=== PATIENT | male | born 1965 | race Two or more races ===

== ENCOUNTER 2022-06-25 07:54 | Emergency (ER) | payer MEDICAID ==
[~2022-06-25] VITALS: Ht 170.2 cm; Wt 100.0 kg
[2022-06-25] MEDS ORDERED: ONDANSETRON HCL 4MG/2ML INJ IV STA (08:14)
[2022-06-25] MEDS ORDERED: SODIUM CHLORIDE 0.9% 1,000 ML IV ONE (08:15)
[2022-06-25 08:55] LABS: CHLORIDE 104 mEq/L (98-107)
[2022-06-25 09:12] LABS: HEMOGLOBIN. 15.2 g/dL (14.0-18.0); MEAN CORPUSCULAR HEMOGLOBIN 29.1 pg (28.0-32.0); MEAN CORPUSCULAR VOLUME 84.4 fL (80.0-94.0); MEAN PLATELET VOLUME 9.7 fl (7.4-10.4); PLATELET 167 x1000/uL (130-400); RED BLOOD CELL COUNT 5.21 mill/uL (4.7-6.1); RED CELL DISTRIBUTION WIDTH 13.8 % (11.6-14.6)
[2022-06-25 10:09] LABS: PLATELET ESTIMATE NORMAL
[2022-06-25 11:37] LABS: CLARITY URINE CLEAR (CLEAR); COLOR URINE YELLOW (YELLOW); KETONES URINE TRACE (NEGATIVE); LEUKOCYTE ESTERASE URINE NEGATIVE (NEGATIVE); NITRITE URINE NEGATIVE (NEGATIVE); OCCULT BLOOD URINE NEGATIVE (NEGATIVE); PROTEIN URINE 1+ (NEGATIVE); SPECIFIC GRAVITY URINE 1.014 (1.005-1.030)
[2022-06-25] MEDS ORDERED: OMEP20CA14 MT (11:58)
[2022-06-25] MEDS ORDERED: ONDA4TAB11 PO (11:58)
[2022-06-25 12:15] VITALS: BP 158/98
== END 2022-06-25 12:20 | disposition home or self-care (01) ==
LOC: ER 07:54
DX: R10.13 Epigastric pain (principal); R11.2 Nausea with vomiting, unspecified; K76.0 Fatty (change of) liver, not elsewhere classified; R94.31 Abnormal electrocardiogram [ECG] [EKG]; Z20.822 Contact with and (suspected) exposure to COVID-19
CPT/HCPCS: 36415; 71045; 76705; 80053; 81003; 83690; 85025; 87426; 93005; 96361; 96374; 99285; C9803; J2405; J7030

== ENCOUNTER 2022-08-11 08:26 | Emergency (ER) | payer MEDICAID ==
[~2022-08-11] VITALS: Ht 172.7 cm; Wt 95.3 kg
[~2022-08-11 08:26] MED LIST: OMEP20CA14 MT; ONDA4TAB11 PO
[2022-08-11 08:29] VITALS: BP 165/126
[2022-08-11] MEDS ORDERED: FAMOTIDINE 20MG TABLET PO ONE (12:15)
[2022-08-11] MEDS ORDERED: VISCOUS LIDOCAINE 2% 15 ML UDC PO ONE (12:15)
[2022-08-11] MEDS ORDERED: ONDANSETRON 4MG ODT PO ONE (12:15)
[2022-08-11] MEDS ORDERED: OMEP20CA14 MT (13:22)
[2022-08-11] MEDS ORDERED: MAG-55 MT (13:22)
== END 2022-08-11 14:00 | disposition left against medical advice (07) ==
LOC: ER 09:01
DX: R10.13 Epigastric pain (principal); I10 Essential (primary) hypertension; K76.0 Fatty (change of) liver, not elsewhere classified
CPT/HCPCS: 99284; Q0162